=== PATIENT | female | born 1955 | race Caucasian/White ===

== ENCOUNTER → 2017-08-01 | Outpatient (CLI) | payer OTHER ==
[~2017-08-01] MED LIST: ABILIFY; ACCUNEB SO1.25 MG/1 INH; ADVAIR 250-501 EACH; ADVAIR 250-501 EACH INH; ALEVE220 M1; ALEVE220 M1 PO; ALPRAZOLAM 0.50.5 MG PO; AMBIEN CR 6.26.25 MG PO; BUDEPRION XL300 MG PO; BUPROPION XL150 MG PO; BUTRANS1 EAC1 TD; CELEXA PO; CYMBALTA20 MG PO; CYMBALTA60 MG PO; DEXILANT60 MG PO; DURAGESIC1 EAC2 TOP; ESTROPIPATE; FENTANYL PA12 MCG/H1 TP; FENTANYL PA12 MCG/HR TOP; FENTANYL PA50 MCG/HR TP; FENTANYL1 EAC1 TOP; GLYCOPYRROLATE 22 M1; GLYCOPYRROLATE PO; HYDROCODON-ACE1 EAC5 PO; HYDROCODON-ACE1 EAC8 PO; HYDROCODON-ACE1 EACH PO; IBUPROFEN 800800 M1 PO; IBUPROFEN 800800 MG PO; LEVOTHROID100 MC1 PO; LEVOXYL75 MCG PO; LIORESAL 10 MG10 MG PO; MELOXICAM7.5 MG PO; NABUMETONE 500500 M1 PO; NEURONTIN 300300 M1 PO; NORCO 10-325 T1 EACH PO; NUCYNTA75 MG PO; PERCOCET 10-321 EACH PO; PERCOCET 5-3251 EACH PO; PHENERGAN 25 MG25 M1 PO; POTASSIUM99 M1 PO; PROTONIX40 M2 PO; REMERON15 MG PO; REXULTI1 MG PO; ROBAXIN 750 MG750 M1 PO; ROBINUL1 MG PO; SEROQUEL 25 MG25 M1 PO; SERTRALINE HCL50 MG PO; VITAMINC500 PO; VOLTAREN GEL 1100 G1 PO; VOLTAREN GEL 1100 GM TOP; WELLBUTRIN PO; vybrid PO
--- NOTE | 2017-08-03 09:00 | PAINCON ---
[address] [address] PAIN MANAGEMENT CONSULTATION Name: ALAN UNDERWOOD Room: [facility]#: [id number] Admission: 08/01/17 Attend Phys: Yifan Lo DO Discharge: Date of : 57 Report #: [id number] THIS REPORT FOR: //name// CC: Yifan Noble DO DATE OF SERVICE: 08/01/2017 REFERRING PHYSICIAN: Justine Noble DO CHIEF COMPLAINT: Neck pain, upper back and chronic headache pain. HISTORY OF PRESENT ILLNESS: As you know, the patient is a 61-year-old female who returns today in followup visit with continued neck pain and chronic tension headaches. The patient indicates a pain level of 6/10 today. She states pain is exacerbated with cold temperature, sitting, walking, standing, lifting, bending, and certain activities, improves with medications and rest. The patient returns for refill of medications. She has received a prior authorization request for her Butrans patch. She indicates good efficacy with the Butrans patch, in fact she notes waning activity towards the end of the week with the Butrans patch with recurrence of pain that is intensified up to a level 10/10. Once the patch is changed and she receives the normal dosing, her pain reduces back down to its normal level. She returns to discuss options for treatment and her concerns of the prior auth for Butrans patch. ALLERGIES: SULFA. CURRENT MEDICATIONS: Alprazolam 0.5 mg every 8 hours, baclofen 10 mg t.i.d., Rexulti 1 mg per day, Butrans 15 mcg patch q. week, Advair Diskus 250/50, two puffs b.i.d., Robinul 1 mg twice a day, levothyroxine 100 mcg per day, methocarbamol 750 mg p.r.n., mirtazapine 15 mg p.o. at bedtime, Percocet 10/325 one tab every 6 hours p.r.n. for pain, Protonix 40 mg per day, Seroquel 25 mg once a day, and Viibryd 40 mg per day. SOCIAL HISTORY: The patient continues to smoke somewhere around a pack of tobacco per day and has done so for years. Denies IV or illicit drug use. Denies any chronic alcohol use. She is unaccompanied today. IMAGING: No new imaging available. PHYSICAL EXAMINATION: VITAL SIGNS: Blood pressure 151/77, pulse 73, respiratory rate 16 and unlabored, the patient is 96% on room air, current temperature 98.3 degrees Fahrenheit, height 5 feet 2-1/2 inches tall, weight 144 pounds, and BMI calculated 26. [place] [address] PAIN MANAGEMENT CONSULTATION Name: ALAN UNDERWOOD Briana Room: [facility]#: [id number] Admission: 08/01/17 Attend Phys: Yifan Lo DO Discharge: Date of : 57 Report #: [id number] GENERAL: Well-developed, well-nourished, well-hydrated 61-year-old female, appears her stated age, smells strongly of tobacco smoke, placing current pain score 6/10. HEENT: Normocephalic, atraumatic. Pupils are equal, round, and reactive to light. Extraocular muscles are intact. EXTREMITIES: Show no clubbing, no cyanosis, and no edema. MUSCULOSKELETAL: There is palpatory tenderness over the paraspinal musculature of the cervical spine, no spinous process tenderness. Cervical provocation testing includes extension, rotation, lateral flexion all intensify axial neck and upper back pain. Gyvnlnbg-vd-xqsrxt restriction of motion with lateral flexion and rotation. Upper extremity strength appears equal and symmetrical. Spurlings test is equivocal. ASSESSMENT: 1. Cervical spondylosis without radicular symptoms. 2. Chronic neck pain. 3. Tension headache. 4. Cervicalgia. 5. Chronic intractable pain. PLAN: 1. The patient returns today in followup visit where we have discussed at length opioid medication management and the new opioid restrictions proposed by CDC. The patient does note good efficacy with Butrans patch, we recommend the patient continue on the Butrans in favor of a long-term, long-acting medication formulation, this reduces the potential for tolerance and certainly does reduce the potential of addiction potentials. The patient does note good efficacy with the Butrans patch. In fact, she notes when the Butrans patch begins to wane in activity as the end week she states her pain intensifies fairly consistently, which would indicate that she is getting excellent benefit with the Butrans patch to the point where she has to use a very little of her breakthrough pain medication, but at the end of the week, she tends to have to increase the reliance on oxycodone significantly. Recommend she continue on this Butrans patch. It does appear the patient has received a letter from her third republican payer indicating the Butrans will require prior authorization, this should not be a problem as the patient is noticing good efficacy with the medication, she is noticing no side effects to its use and is getting good benefit. She has been on this medication for a very long period of time and it has been used appropriately and provides good analgesic benefit. The patient was given prescriptions of the Butrans in prescription form today. 2. The patient was provided a prescription of Butrans 15 mcg patch 1 patch per week, #4, release date of today, 4 weeks from today, 8 weeks from today, 3 months' worth of medication. The patient needs to turn this in about 2 weeks early, so that the authorization process can be completed before she runs low of the medication. 3. The patient was provided a prescription of Percocet one tab p.o. q.6 [place] [address] PAIN MANAGEMENT CONSULTATION Name: ALAN UNDERWOOD [facility] [id number] Admission: 08/01/17 Attend Phys: Yifan Lo DO Discharge: Date of : 57 Report #: [id number] hours p.r.n. for pain, #120, release dates of today, 4 weeks from today, 8 weeks from today. Strongly recommend the patient begin weaning off of this immediate release opioid. This medication has lessening affect due to the ongoing use of buprenorphine and we recommend that she try to reduce the use of this medication when possible. Further reductions in this therapy would be recommended at our next visit, reducing to 3 a day, ultimately coming off the medication in a timely fashion if at all possible. 4. The patient and I did discuss the possibility of having her see neurology in regards to Botox injections for her tension headaches. This is an effective treatment option for her chronic tension headaches, which is her main complaint today. I have offered to send the patient to neurology for the evaluation and treatment. She wishes to consider her options before moving forward. I highly recommend this to the patient. If the patient wishes, she can contact our clinic and we will provide the referrals as quickly as possible, I believe that this therapy will improve the patient's headache pain. 5. We will see the patient back in followup visit in 3 months. I have discussed with the patient our desire to have her to be smoke free, smoking has had direct correlations to chronic pain and the propagation of chronic pain signaling. This is done through the descending pain pathway. I have recommended to the patient on smoking cessation as part of our treatment goals. We have offered to the patient medical management as well as cognitive behavioral therapy treatments for this in the past and have reoffered again today. The patient is going to consider this as an option. 6. We will see the patient back in followup visit in 3 months for medication management. <ELECTRONICALLY SIGNED> By: Yifan Lo DO 08/03/17 0900 0843 1050Jacarol Lo DO /jorge
== END ==
LOC: M.PC 00:55
DX: M47.892 Other spondylosis, cervical region (principal); G89.29 Other chronic pain; G44.209 Tension-type headache, unspecified, not intractable; Z87.891 Personal history of nicotine dependence

== ENCOUNTER → 2017-10-25 | Outpatient (CLI) | payer OTHER ==
--- NOTE | 2017-11-02 08:18 | PAINCON ---
[address] [address] PAIN MANAGEMENT CONSULTATION Name: ALAN UNDERWOOD [facility] [id number] Admission: 10/25/17 Attend Phys: Manuelito Eli MD Discharge: Date of : 57 Report #: [id number] THIS REPORT FOR: //name// CC: JUSTINE Colon DATE OF SERVICE: 10/25/2017 PRIMARY CARE PHYSICIAN: Justine Noble DO. FOLLOWUP COMPLAINT: Here for medication renewal. FOLLOWUP HISTORY: The patient is a 62-year-old female who has been followed in the Pain Clinic because of chronic pain associated with her upper back as well as headache pain. States that she has had pain and discomfort for a number of years, probably greater than 20 years. She does have a handicapped child. Because of the patient's infirmity, she had to lift and maneuver her over the years. This has caused some degenerative joint disease as well as pain and discomfort in her upper extremity. She has some limited mobility of her neck. Finds that baclofen, meloxicam and oxycodone medications are helpful. She also uses a Butrans patch. Finds that continues to be efficacious. She denies any falls. Denies any problems with mentation. Denies any feelings of withdrawal with use of her medication. Rates her pain as a 7/10 at this juncture. States that she is trying to decrease her use of tobacco. ALLERGIES: SULFA, ROCEPHIN, AND ADHESIVE TAPES. CURRENT MEDICATIONS: Alprazolam 0.5 mg q.8h. p.r.n. anxiety, baclofen 10 mg t.i.d. p.r.n., Rexulti one tablet daily, Butrans patch 15 mcg transdermal change weekly, Advair Diskus 250/50 two puffs for shortness of breath, Glycopyrrolate 1 mg tablet b.i.d. for colon spasms, levothyroxine 0.1 mg, meloxicam 7.5 mg b.i.d., Robaxin 750 mg q.8 hours, Remeron 15 mg at bedtime, improved sleep and mood, oxycodone 10/325 one p.o. q. 6 hours p.r.n. pain, Protonix 40 mg b.i.d. The patient tried Seroquel 25 mg for about a week and felt that this medication did not work well for her. PAST MEDICAL HISTORY: Asthma, thyroid disease, colon problems, stomach problems, and emotional problems. PAST SURGICAL HISTORY: Hysterectomy in 2000, bladder surgery in 2003. 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 She is not working secondary to chronic depression. REVIEW OF SYSTEMS: Chronic headache pain, depression, upper back pain, [place] [address] PAIN MANAGEMENT CONSULTATION Name: ALAN UNDERWOOD Briana Room: [facility]#: [id number] Admission: 10/25/17 Attend Phys: Manuelito Eli MD Discharge: Date of : 56 Report #: [id number] pain, osteoporosis, thyroid disease. PAIN CLINIC ASSESSMENT: History of osteoarthritis in the neck area. Height 5 feet 3 inches, weight 150 pounds, BMI is 27. VITAL SIGNS: Blood pressure was 139/73, heart rate 91, respiratory rate 16, room air saturation 94%, temperature 98.5. Pain intensity. 01/10. Fall risk. The patient has not fallen in the last 3 months. Blood thinner. The patient is not on blood thinning medication. History of hypertension. The patient has not been treated for hypertension. Opioid therapy for greater than 6 weeks. The patient does have an opioid contract with the Pain Clinic and gets her medication from one source. Risk assessment tool. Functional assessment tool. Recreational drug use. The patient denies use of recreational drugs. Tobacco: The patient has smoked about 20 years, 1 pack of cigarettes per day at this juncture, states that she is trying to decrease and quit. Alcohol. Denies frequent use of alcohol and rates it as occasional. PHYSICAL EXAMINATION: GENERAL: The patient is a well-developed white female, appears her stated age. She is alert and oriented x 3. Affect is appropriate. Speech is fluent. HEENT: Normocephalic, atraumatic. Extraocular eye muscles intact. Sclerae nonicteric. Mucous membranes moist. Hearing is within normal limits. NECK: Without JVD or bruits. HEART: Regular rate and rhythm. ABDOMEN: Nontender. MUSCULOSKELETAL: Without significant kyphosis, lordosis, or scoliosis. EXTREMITIES: Upper extremity musculature is judged to be 5/5 for the major muscle groups with symmetry. The patient has pain and discomfort in the neck area. She is unable to turn her head, left or right more than about 15 degrees without increased pain and discomfort. Flexion and extension is limited as well. Left and right lateral bending is limited. The patient does have some soreness and palpation in the occipital areas. Lower extremities, muscle strength is judged to be 5/5 for the major muscle groups. There is symmetry. No sensory changes. IMPRESSION: 1. Cervical spondylosis without radicular symptoms. 2. Chronic back pain. 3. Chronic tension headaches. 4. Cervicalgia. 5. Chronic intractable pain. 6. Radiofrequency denervation, 2006 at C2, C3, [place] [address] PAIN MANAGEMENT CONSULTATION Name: UNDERWOODALEIDA WILHELMBERT Warren Room: [facility]#: [id number] Admission: 10/25/17 Attend Phys: Manuelito Eli MD Discharge: Date of : 57 Report #: [id number] RECOMMENDATIONS: We discussed treatment options with the patient. She feels that the current medical regimen continues to be helpful. She is still limited in her ability to engage in activities of daily living secondary to her pain. It is exacerbated by cold temperatures, walking, sitting, standing, lifting, and bending. Driving can be somewhat problematic as well because of limitation in her ability to radiate and move her neck in a significant range of motion. She feels that the medications of alprazolam, baclofen, Butrans, meloxicam and Percocet medications continue to be helpful. She has undergone radiofrequency treatment. At this juncture, we will continue with her current medications. A script for her medications have been rewritten. She will follow up in the near future. We would like to thank you for letting us participate in her care. We hope she continues to improve. <ELECTRONICALLY SIGNED> By: Manuelito Eli MD 11/02/17 0818 0954 0240N. Norman Eli MD /SARBJIT
== END ==
LOC: M.PC 02:02
DX: M47.892 Other spondylosis, cervical region (principal); G89.29 Other chronic pain; M54.9 Dorsalgia, unspecified

== ENCOUNTER → 2018-02-16 | Outpatient (CLI) | payer OTHER ==
--- NOTE | 2018-03-10 17:38 | PAINCON ---
[address] [address] PAIN MANAGEMENT CONSULTATION Name: ALAN UNDERWOOD [id number] Admission: 02/16/18 Attend Phys: Manuelito Eli MD Discharge: Date of : 56 Report #: [id number] THIS REPORT FOR: //name// CC: José Luis Maldonado DATE OF SERVICE: 02/16/2018 FOLLOWUP COMPLAINT: Here for medication renewal. FOLLOWUP HISTORY: The patient is a 62-year-old female who has been seen in the pain clinic because of chronic pain in her upper back as well as some problems with headache pain. She continues to have some pain and discomfort in her neck as well as in the upper back area. She has had no significant changes since we saw her in October 2017. She has had headaches, which she rates 3-4 per week, depending on her level of activity. Finds that the Butrans patch is helpful. Rates her pain as 7/10. As you recall, she has a handicapped child, requires significant amount of lifting and moving. She would like to continue with her medication at this juncture. She has returned for renewal of her medications. ALLERGIES: SULFA, ROCEPHIN, AND ADHESIVE TAPE. CURRENT MEDICATIONS: Alprazolam 0.5 mg q.8 hours for anxiety, baclofen 10 mg t.i.d., Rexulti one tablet daily, Butrans patch 15 mcg transdermal, change weekly, Advair Diskus 250/50 two puffs, glycopyrrolate one tablet b.i.d. for colon spasms, levothyroxine 0.1 mg, Meloxicam 7.5 mg b.i.d., Robaxin 750 mg q. 8 hours, Remeron 15 mg at bedtime, oxycodone 10/325 one p.o. q hours, Protonix 40 mg b.i.d. The patient has tried Seroquel 25 mg in the past. PAIN CLINIC ASSESSMENT: 1. Osteoarthritis involving the back and neck. 2. Height 5 feet 3 inches, weight 141 pounds, BMI is 25.1. 3. Vital signs: Blood pressure 144/74, heart rate 78, respiratory rate 16, room air saturation 92%, temperature 98.3. 4. Pain intensity 01/10. 5. Fall risk. The patient fell while moving a potted plant. 6. Blood thinner. The patient is not on a blood thinning medication. 7. Hypertension. The patient is not being treated for hypertension. 8. Opioid. The patient is receiving Butrans patch from the pain clinics as well as Percocet. 9. Risk assessment tool. 10. Functional assessment tool. 11. Recreational drug use. The patient denies use of recreational drugs. 12. Tobacco: The patient less than one pack of cigarettes per day, has smoked for [address] [place] [address] PAIN MANAGEMENT CONSULTATION Name: ALAN UNDERWOOD Room: [facility]#: [id number] Admission: 02/16/18 Attend Phys: Manuelito Eli MD Discharge: Date of : 57 Report #: [id number] 13. Alcohol. The patient rarely uses alcoholic beverages. PHYSICAL EXAMINATION: GENERAL: The patient is a well-developed, well-nourished white female. Appears her stated age. She is alert and oriented x 3. Affect is appropriate. Speech is fluent. HEENT: Normocephalic, atraumatic. Extraocular eye muscles intact. Sclerae nonicteric. Mucous membranes are moist. Hearing is within normal limits NECK: Without JVD or bruits. HEART: Regular rate and rhythm. ABDOMEN: Nontender. MUSCULOSKELETAL: Without kyphosis, lordosis, or scoliosis. Upper extremity muscle strength is judged to be 5/5 for the major muscle groups. There is symmetry. The patient has some pain and discomfort in her neck area. She also has some increased discomfort when she rotates her head more than 15 degrees. Flexion and extension are somewhat limited. Left and right lateral bending are limited. The patient has some soreness in the occipital areas. Lower extremity muscle strength is judged to be 5/5 for the major muscle groups with symmetry. No sensory changes. IMPRESSION: 1. Cervical spondylosis without radicular symptoms. 2. Chronic back pain. 3. Chronic tension headaches. 4. Cervicalgia, chronic intractable pain. 5. Radiofrequency denervation in 2006 at C2, C3, C4. RECOMMENDATIONS: We discussed the treatment options with the patient. We will continue with her current medications. A script for her medications of oxycodone, baclofen, Voltaren, Meloxicam, Robaxin, and Butrans patches have been rewritten. She will follow up in the future as needed. She will call us if she has any concerns regarding her medications. She is aware that opioid medications can be problematic. Constant use of opioid medications were discussed and the possibility of addiction was discussed. The patient states she keeps her medication in a guarded area. She is aware that the possibility of decreasing efficacy from these medications exist. This could be secondary to development of tolerance. We would like to thank you for letting us participate in her care. We hope she continues to improve. <ELECTRONICALLY SIGNED> By: Manuelito Eli MD 03/10/18 1738 1622 2332N. Norman Eli MD /nt
== END ==
LOC: M.PC 04:59
DX: M47.812 Spondylosis without myelopathy or radiculopathy, cervical region (principal); G44.221 Chronic tension-type headache, intractable; G89.4 Chronic pain syndrome; Z79.899 Other long term (current) drug therapy

== ENCOUNTER → 2020-06-18 | Day surgery (SDC) | payer MEDICAID ==
[~2020-06-18] MED LIST changes: +ABILIFY 5 MG TAB5 M1 PO; +ABILIFY 5 MG TAB5 MG PO; +ABILIFY10 MG PO; +AMITRIPTYLINE H50 M2 PO; +AMITRIPTYLINE H50 M3 PO; +BUPROPION HCL150 M1 PO; +CLONAZEPAM 0.50.5 M1 PO; +DULOXETINE HCL30 MG PO; +IPRAT-ALBUT 0.5-3 ML INH; +LEVO-T75 MCG PO; +LEVOTHYROXINE75 MCG PO; +LISINOPRIL20 MG PO; +OMEPRAZOLE 20 M20 M1 PO; +PROAIR HFA8.5 GM INH; +SYMBICORT160 MCG/4. INH
[2020-06-18 07:08] LABS: HEMATOCRIT 40.4 % (37.0-47.0); HEMOGLOBIN 13.3 gm/dL (12.0-15.0); MCH 27.7 pg (26.0-34.0); MCHC 32.9 g/dL (28.0-37.0); MCV 84.1 fL (80.0-100.0); MPV 7.6 fl. (7.2-11.1); RBC 4.81 mil/uL (4.20-5.00); RDW-CV 14.5 % (10.5-14.5); WBC 6.5 thou/uL (4.0-11.0)
[2020-06-18 07:17] LABS: CALCIUM 8.6 mg/dL (8.5-10.1); CREATININE 0.9 mg/dL (0.6-1.3); POTASSIUM 4.5 mmol/L (3.5-5.1)
--- NOTE | 2020-06-18 18:22 | EKG ---
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 Analyst: [facility] : 1955 Requested By: Eris Sosa Order Number: [id number] Reading MD: Mike Patino Measurements Intervals [place] Rate: 80 P: 87 [place]: 165 QRS: 59 QRSD: 90 T: 62 QT: 372 QTc: 430 Interpretive Statements Sinus rhythm Compared to ECG 12/29/2016 13:52:52 No significant changes Electronically Signed On 06-18-2020 18:22:10 CORE DRILLER HELPER by Mike Patino [email or web address] <ELECTRONICALLY SIGNED> By: Jane Patino MD, [facility] 06/18/20 1822 7 7 Jane Patino MD, [facility] /EPI
--- NOTE | 2020-06-19 11:07 | OP ---
[facility] [address] [place] [address] [address] OPERATIVE REPORT Name: ALAN UNDERWOOD Room: [facility]#: [id number] Admission: 06/18/20 Attend Phys: Eris Sosa Discharge: Date of : 57 Report #: [id number] THIS REPORT FOR: cc: KATHY ESTRADA DO BLYTHE, TIFFANNY, DO ~ Patterson, Jonathan D. MD DATE OF SERVICE: 06/18/2020 PREOPERATIVE DIAGNOSIS: Left femoral hernia. POSTOPERATIVE DIAGNOSIS: Left femoral hernia. OPERATION: Laparoscopic repair of left femoral hernia with mesh. SURGEON: Eris Sosa MD ANESTHESIA: General. ESTIMATED BLOOD LOSS: Minimal. SPECIMEN: None. DESCRIPTION OF PROCEDURE: After informed consent was obtained, the patient was brought to the operating room and placed supine. SCDs were placed and working, preoperative antibiotics were administered, general anesthesia was induced. The abdomen was prepped and draped in the usual sterile fashion. A 10 mm incision was made above the umbilicus. Fascia was incised and a trocar was placed. Pneumoperitoneum was established. Left lower quadrant and right lower quadrant 5 mm trocars were placed under direct vision. The patient was placed in Trendelenburg position. The peritoneum at the left ASIS was scored. It was then incised and reflected inferiorly. This allowed visualization of the pubic bone. The iliac vessels were protected at all times. She had incarcerated femoral hernia and this was all carefully reduced. The round ligament was identified. A medium Bard 3DMax mesh was inserted. It was tacked to Brent's ligament with 2 absorbable tacks. I then reapproximated the peritoneum with a running V-Loc suture. This covered the mesh widely. The area was then instilled with 20 mL of 0.5% Marcaine solution. The ports were removed under direct vision. The umbilicus fascia was repaired with a pqhwhg-cd-zgkvi 0 Vicryl. Skin was closed with 4-0 Monocryl. Incisions were dressed with Steri-Strips. COMPLICATIONS: [place] [address] OPERATIVE REPORT Name: ALAN UNDERWOOD Room: [facility]#: [id number] Admission: 06/18/20 Attend Phys: Eris Sosa Discharge: Date of : 57 Report #: [id number] DISPOSITION: The patient was taken to recovery in satisfactory condition. <ELECTRONICALLY SIGNED> By: Eris Sosa MD 06/19/20 1107 1003 1009Eris Sosa MD /nt
== END | disposition home or self-care (01) ==
LOC: M.SUR 06:53
PROVIDERS: ATTEND Surgery
DX: K41.30 Unilateral femoral hernia, with obstruction, without gangrene, not specified as recurrent (principal); J44.9 Chronic obstructive pulmonary disease, unspecified; K21.9 Gastro-esophageal reflux disease without esophagitis; F32.9 Major depressive disorder, single episode, unspecified; F41.9 Anxiety disorder, unspecified; F17.210 Nicotine dependence, cigarettes, uncomplicated; Z98.890 Other specified postprocedural states; Z79.899 Other long term (current) drug therapy; Z20.828 Contact with and (suspected) exposure to other viral communicable diseases; Z90.710 Acquired absence of both cervix and uterus; Z88.2 Allergy status to sulfonamides

== ENCOUNTER 2021-04-16 22:45 | Inpatient (IN) | payer MEDICARE, MEDICAID ==
[~2021-04-16] VITALS: Ht 157.5 cm; Wt 48.1 kg
[2021-04-16 22:56] VITALS: BP 145/101
[2021-04-16 23:13] LABS: ABSOLUTE BASOPHILS 0.1 thou/uL (0.0-0.2); ABSOLUTE EOSINOPHILS 0.3 thou/uL (0.0-0.7); ABSOLUTE LYMPHOCYTES 2.8 thou/uL (0.8-5.3); ABSOLUTE MONOCYTES 1.1 thou/uL (0.0-1.2); ABSOLUTE NEUTROPHILS 4.4 thou/uL (1.6-8.1); BASOPHILS 1.2 %; EOSINOPHILS 2.9 %; HEMATOCRIT 44.4 % (37.0-47.0); HEMOGLOBIN 14.4 gm/dL (12.0-15.0); MCH 27.8 pg (26.0-34.0); MCHC 32.5 g/dL (28.0-37.0); MCV 85.3 fL (80.0-100.0); MPV 9.2 fl. (7.2-11.1); NUCLEATED RBCS 0 /100WBC; PLATELET COUNT* 253 thou/uL (150-400); POLYS 50.9 %; RDW-CV 14.8 % (10.5-14.5); WBC 8.7 thou/uL (4.0-11.0)
[2021-04-16 23:26] LABS: CALCIUM 8.8 mg/dL (8.5-10.1); CREATININE 1.2 mg/dL (0.6-1.3); POTASSIUM 4.6 mmol/L (3.5-5.1)
[2021-04-16 23:37] LABS: ALBUMIN 3.7 g/dL (3.4-5.0); TOTAL BILIRUBIN 0.3 mg/dL (<0.1-1.0); TOTAL PROTEIN 6.5 g/dL (6.4-8.2)
[2021-04-17] VITALS (20 sets, daily range): BP systolic 89–179; BP diastolic 54–93
[2021-04-17 00:36] LABS: APTT 24.2 Seconds (25.0-31.3); INR 1.1; PROTIME 11.2 Seconds (9.20-11.50)
[2021-04-17 02:49] LABS: PCO2 40.2 mmHg (35.0-45.0); pH 7.376 (7.340-7.450)
[2021-04-17 02:50] LABS: PO2 128.4 mmHg (75.0-100.0)
--- NOTE | 2021-04-17 09:57 | EKG ---
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: [place] : 1955 Requested By: Sarah Campos Order Number: [id number] MD: Jarocho Hamilton Measurements Intervals [place] Rate: 113 P: 88 [place]: 162 QRS: -52 QRSD: 110 T: 92 QT: 351 QTc: 482 Interpretive Statements Sinus tachycardia left axis Probable anteroseptal infarct Compared to ECG 06/18/2020 07:28:08 Myocardial infarct finding now present Sinus rhythm no longer present Electronically Signed On 04-17-2021 9:56:51 CDT by Jarocho Hamilton [email or web address] <ELECTRONICALLY SIGNED> By: Jarocho Hamilton MD, FACC 04/17/21 0956 50 50 Jarocho Hamilton MD, FACC /EPI
[2021-04-17] MEDS ORDERED: PEPCID20 MG PO (12:32)
[2021-04-17] MEDS ORDERED: XANAX 0.25 MG0.25 MG PO (12:32)
[2021-04-17] MEDS ORDERED: PRAVASTATIN SOD20 MG PO (12:34)
--- NOTE | 2021-04-17 17:02 | EKG ---
[place] [address] ELECTROCARDIOGRAM REPORT Name: ALAN UNDERWOOD Room: [address] ADM IN [facility].#: [id number] Admission: 04/17/21 Attend Phys: Jacki Love Discharge: Date of : 57 Date of Service: 04/17/21 0157 Report #: [id number] THIS REPORT FOR: //name// [facility] ED Test Date: 2021-04-17 Test Time: 01:57:50 Pat Name: ALAN UNDERWOOD Department: Room: [facility] Gender: F Fire Observer: [place] : 1955 Requested By: Sarah Campos Order Number: [id number] MD: Jarocho Hamilton Measurements Intervals [place] Rate: 88 P: 80 [place]: 149 QRS: 69 QRSD: 86 T: 66 QT: 382 QTc: 463 Interpretive Statements Sinus rhythm septal infarct, old Compared to ECG 04/16/2021 22:52:33 Sinus tachycardia no longer present Myocardial infarct finding still present Electronically Signed On 04-17-2021 17:01:49 CDT by Jarocho Hamilton [email or web address] <ELECTRONICALLY SIGNED> By: Jarocho Hamilton MD, FACC 04/17/21 1701 6 015 Jarocho Hamilton MD, FAC /EPI
--- NOTE | 2021-04-17 18:43 | CARD ---
[address] [address] CARDIAC CATH REPORT Name: ALAN UNDERWOOD Briana Room: [address] IN [facility]#: [id number] Admission: 04/17/21 Attend Phys: Fozia Mckeon Discharge: Date of : 57 Report #: [id number] THIS REPORT FOR: cc: FAM - Family physician unknown FAM - Family physician unknown Jarocho Hamilton MD [facility] ~ APPROVED REPORT Study performed: 04/17/2021 14:10:09 Patient Details Patient Status: IN Room #: 118 The patient is a 65 year-old female Event Personnel Fredy Reyes RTR Monitor, Jenna Crystal RTR Scrub, Jarocho Hamilton Home Coordinator, Lillian Redding RN grinder set up operator internal Performed Left Heart Cath w/or w/o Coronaries [id number] [facility] w/wo Plasty Single LAD [id number] Hemostasis with Hemoband Indication Abnormal ECG, Non-STEMI , Chest pain Risk Factors Hypercholesterolemia, Hypertension, Tobacco History () Admission/Lab Medications/Medications given during procedure Glycoprotein IllbIlla Inhibitors, Heparin Unfract., Midazolam (Versed) IV 2 mg, Lidocaine Subcut 5 ml, Nitroglycerin IA 200 mcg, Verapamil IA 2.5 mg, Heparin IV 3000 units, Aggrastat Unknown 5.9 ml, Midazolam (Versed) IV 1 mg, Plavix PO 300 mg Procedure Narrative The patient was brought electively to the Cardiac Catheterization Laboratory and was prepped and draped in a sterile manner. The right wrist was infiltrated with 2% Lidocaine subcutaneous anesthesia. IV conscious sedation was used throughout procedure with appropriate monitoring and was performed in the presence of a registered nurse who was an independent trained observer other than the physician performing the procedure. A Slender Glidesheath sheath was inserted into the right radial artery. [place] [address] CARDIAC CATH REPORT Name: ALAN UNDERWOOD Room: [address]#: [id number] Admission: 04/17/21 Attend Phys: Fozia Mckeon Discharge: Date of : 57 Report #: [id number] using coronary diagnostic catheters. The right coronary system was accessed and visualized with a Diagnostic JR4 6Fr catheter. The left coronary system was accessed and visualized with a Diagnostic JL4 6Fr catheter. The left ventricle was accessed and visualized with a Diagnostic Pigtail 6Fr catheter. Left ventricular/Aortic Valve gradient assessed via catheter pullback. Left ventriculogram was performed in MCKEON projection. Closure device was deployed with a 6 Fr vascband. The patient tolerated the procedure well and there were no complications associated with the procedure. There was no hematoma. Intraoperative Conscious Sedation Sedation start time: 1554 Case end Time: 1632 Versed --3 mg Fluoro Time: 6.0 minutes Dose: DAP 45894 cGycm2 690.28 mGy Contrast Type and Amount: Visipaque 105 mL Coronary Angiography The patient's coronary anatomy is right dominant. Diagnostic Cath Left Main 0% stenosis LAD 70% proximal stenosis. 60% stenosis just distal to takeoff of the second diagonal branch. Diagonal 2 medium sized vessel with 70% ostial stenosis Circumflex 0% stenosis Right Coronary 0% stenosis Left Ventriculography The left ventricular ejection fraction is estimated to be 25-30%. Left ventricular wall motion abnormalities are present. There is no mitral insufficiency. Akinesis noted of the mid inferior and mid anterior wall. Hemodynamics The aortic pressure is 113/74 mmHg with a mean of 70 mmHg. The left ventricular pressure is 95/12 mmHg with a mean of mmHg. The left ventricular end diastolic pressure is 20 mmHg. There was no gradient across the aortic valve upon pullback. Pullback from the left ventricle to the aorta revealed no gradient [place] [address] CARDIAC CATH REPORT Name: UNDERWOODALAN Briana Room: [address]#: [id number] Admission: 04/17/21 Attend Phys: Fozia Mckeon Discharge: Date of : 57 Report #: [id number] PCI Technique Lesion Anticoagulation was achieved with Heparin. bolus of IV aggrastat given Percutaneous coronary intervention was performed on the proximal left anterior descending artery segment. The lesion stenosis prior to intervention was 70% with BRINA 3 flow. A 6FR XB LAD 3.0 100CM Guide Catheter was used to engage the Left ostium. A IG: BMW 190cm Interventional Guidewire was used to cross the lesion. STENT DEPLOYMENT A drug-eluting stent [place] RX Stent [id number] was inserted and inflated up to 10.00atm for 16seconds. Repeat angiography revealed the following post-stent deployment results: 0% stenosis. Additional Inflation: 12.00atm for 16seconds. Additional Inflation: 13.00atm for 19seconds. Final angiography reveals 0 % stenosis with BRINA 3 flow. Conclusion 1. 70% stenosis of the proximal LAD 2. LVEF 25-30% consistent with stress induced cardiomyopathy. 3. successful placement of a drug eluting stent in the proximal LAD Recommendations Smoking Cessation Medications Administered Clopidogrel <ELECTRONICALLY SIGNED> By: Jarocho Hamilton MD, FACC 04/17/211841 41 [id number] Hamilton MD, FACC /INF
[2021-04-18 00:45] VITALS: BP 105/57
[2021-04-18 01:04] LABS: HEMATOCRIT 38.3 % (37.0-47.0); MCH 27.4 pg (26.0-34.0); MCHC 32.4 g/dL (28.0-37.0); MCV 84.4 fL (80.0-100.0); MPV 8.7 fl. (7.2-11.1); RBC 4.54 mil/uL (4.20-5.00); RDW-CV 14.6 % (10.5-14.5); WBC 8.9 thou/uL (4.0-11.0)
[2021-04-18 01:19] LABS: ANION GAP 7 mmol/L (7-16); BUN 19 mg/dL (7-18); CALCIUM 7.3 mg/dL (8.5-10.1); CHLORIDE 110 mmol/L (98-107); CHOLESTEROL 133 mg/dL (<200); CO2 25 mmol/L (21-32); CREATININE 0.9 mg/dL (0.6-1.3); GLUCOSE 92 mg/dL (70-99); HDL CHOLESTEROL 50 mg/dL (>40); LDL CHOLESTEROL 62 mg/dL (<100); POTASSIUM 3.9 mmol/L (3.5-5.1); SODIUM 142 mmol/L (136-145); TC:HDL 2.7 Ratio (Not establshd); TRIGLYCERIDE 109 mg/dL (<150); VLDL 22 mg/dL (<40)
[2021-04-18 01:25] LABS: SERUM ASSESSMENT CLEAR
[2021-04-18 01:30] LABS: HEMOGLOBIN 12.4 gm/dL (12.0-15.0)
[2021-04-18 04:27] VITALS: BP 96/50
[2021-04-18 08:00] VITALS: BP 111/54
--- NOTE | 2021-04-18 10:03 | CON ---
[facility] [address] [place] [address] CONSULTATION Name: UNDERWOODALAN Briana Room: [address] IN .R.#: [id number] Admission: 04/17/21 Attend Phys: Fozia Mckeon Discharge: Date of : 57 Report #: [id number] THIS REPORT FOR: cc: FAM - Family physician unknown FAM - Family physician unknown Jarocho Hamilton MD [facility] ~ DATE OF CONSULTATION: 04/17/2021 CARDIOLOGY CONSULTATION HISTORY OF PRESENT ILLNESS: The patient is a 65-year-old single white female who I was asked to see in the Emergency Room today after she complained of chest pain. The patient states that 6 years ago, she was walking through an airport in [place], [place] when she had a syncopal spell. She was admitted to the hospital and told that she had a heart attack secondary to stress. She apparently did not have a heart catheterization. She notes that recently she has had a cough and been short of breath. She denies any fever or swelling of her feet. She also noticed some tightness in the chest. It has been there for 2 days. It is a constant sensation. She denied radiating to her arms. She finally came to the hospital yesterday by ambulance and was put on BiPAP. I was asked to see her when her troponin was noted to be elevated. She denied any palpitations, recent syncope. PAST MEDICAL HISTORY: She had a hernia repair, hysterectomy. She has a history of hypertension. She has a history of depression. She has a history of COPD, uses inhaler and nebulized treatment. MEDICATIONS: At home include albuterol inhaler, Elavil, Abilify, Symbicort, Wellbutrin, clonazepam, lisinopril, omeprazole. ALLERGIES: SHE HAS A PREVIOUS ALLERGY TO SULFA DRUGS. FAMILY HISTORY: Negative for heart disease. SOCIAL HISTORY: She is , lives with her daughter in [place]. She does not work at this time, smokes half pack of cigarettes a day, rarely drinks alcohol. No illicit drug use. REVIEW OF SYSTEMS: No history of a stroke. She has COPD. No history of liver disease, kidney disease, cancer. She has a history of depression. She sees a psychiatrist. No chronic skin condition. PHYSICAL EXAMINATION: GENERAL: Revealed a middle-aged female, lying in bed. [place] [id number] CONSULTATION Name: ALAN UNDERWOOD Briana Room: [address]#: [id number] Admission: 04/17/21 Attend Phys: Fozia Mckeon Discharge: Date of : 57 Report #: [id number] VITAL SIGNS: She had a blood pressure of 140/90, pulse is 90. She is afebrile. HEENT: She was anicteric. Conjunctivae pink. Mucous membranes are moist. NECK: Veins does not appear distended. No carotid bruits. Neck is supple. CHEST: There are expiratory wheezes. HEART: Regular rate and rhythm. No murmur. ABDOMEN: Soft. EXTREMITIES: Had no edema. SKIN: Cool and dry. NEUROLOGIC: Nonfocal. LYMPHATIC: No adenopathy. MUSCULOSKELETAL: No joint effusion. LABORATORY DATA: Her ECG on admission showed sinus tachycardia, ventricular premature complexes, poor R-wave progression. Her workup in the Emergency Room last night, she had a portable chest x-ray that showed normal heart size, clear lung ernandez. Her lab work, her sodium 137, creatinine 1.2, glucose is 267. Her high sensitivity troponin was 255 on admission, last night went up to 1304. She had an LDL of 157 in 2013. Her urine drug screen had benzodiazepines and opiates in the past. Hemoglobin is 14.4. Her COVID antigen stat test apparently was not done, although she has been vaccinated and she did have a stat test last night that was negative. IMPRESSION AND RECOMMENDATIONS: 1. Non-ST elevation myocardial infarction. Recommend cardiac catheterization. 2. Chronic obstructive pulmonary disease. 3. Chronic back pain. The patient goes to the Pain Clinic. 4. Tobacco abuse. 5. Chronic obstructive pulmonary disease. 6. Elevated blood sugar. Recommend ruling out diabetes. 7. Hypertension. The patient is on MISAEL inhibitor. 8. History of depression. <ELECTRONICALLY SIGNED> By: Jarocho Hamilton MD, FACC 04/18/21 1003 0803 [id number] Hamilton MD, FACC /nt
--- NOTE | 2021-04-18 10:16 | EKG ---
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: : 1955 Requested By: Jarocho Hamilton Order Number: [id number] Reading MD: Jarocho Hamilton Measurements Intervals [place] Rate: 67 P: 80 NC: 169 QRS: 67 QRSD: 79 T: 260 QT: 439 QTc: 464 Interpretive Statements Sinus rhythm septal infarct, old Nonspecific T abnormalities, inferior leads Compared to ECG 04/17/2021 01:57:50 T-wave abnormality now present Myocardial infarct finding still present Electronically Signed On 04-18-2021 10:16:38 CDT by Jarocho Hamilton [email or web address] <ELECTRONICALLY SIGNED> By: Jarocho Hamilton MD, FACC 04/18/21 1016 56 57 Jarocho Hamilton MD, FACC /EPI
[2021-04-18 15:40] VITALS: BP 90/57
[2021-04-18 20:00] VITALS: BP 101/53
[2021-04-19] VITALS: BP 81/44
[2021-04-19 04:00] VITALS: BP 93/55
[2021-04-19 06:36] LABS: CREATININE 0.9 mg/dL (0.6-1.3)
[2021-04-19 06:41] LABS: CALCIUM 9.4 mg/dL (8.5-10.1)
[2021-04-19 06:43] LABS: POTASSIUM 6.5 mmol/L (3.5-5.1)
[2021-04-19 08:00] VITALS: BP 104/58
[2021-04-19 16:00] VITALS: BP 110/65
[2021-04-19 20:00] VITALS: BP 95/37
[2021-04-20] VITALS: BP 123/67
[2021-04-20 04:00] VITALS: BP 128/73
[2021-04-20 04:13] LABS: BE 2.9 mmol/L (-2 to +3); PCO2 VENOUS 48.4 mmHg (41.0-51.0); PO2 VENOUS 37.7 mmHg (35.0-45.0)
[2021-04-20 04:15] LABS: HEMATOCRIT 44.8 % (37.0-47.0); MCH 27.5 pg (26.0-34.0); MCV 83.2 fL (80.0-100.0); RBC 5.39 mil/uL (4.20-5.00); RDW-CV 14.3 % (10.5-14.5); WBC 10.3 thou/uL (4.0-11.0)
[2021-04-20 04:26] LABS: HEMOGLOBIN 14.8 gm/dL (12.0-15.0)
[2021-04-20 04:35] LABS: ALBUMIN 3.3 g/dL (3.4-5.0); CALCIUM 9.3 mg/dL (8.5-10.1); CREATININE 1.2 mg/dL (0.6-1.3); MAGNESIUM 2.4 mg/dL (1.8-2.4); POTASSIUM 4.5 mmol/L (3.5-5.1); TOTAL BILIRUBIN 0.4 mg/dL (<0.1-1.0); TOTAL PROTEIN 6.5 g/dL (6.4-8.2)
[2021-04-20 08:00] VITALS: BP 116/62
[2021-04-20 14:13] VITALS: BP 110/68
--- NOTE | 2021-04-20 16:15 | EKG ---
[place] [address] ELECTROCARDIOGRAM REPORT Name: ALAN UNDERWOOD Room: [address] ADM IN M.R.#: [id number] Admission: 04/17/21 Attend Phys: Jacki Love Discharge: Date of : 57 Date of Service: 04/20/21 1113 Report #: [id number] THIS REPORT FOR: //name// [facility] Test Date: 2021-04-20 Test Time: 11:13:06 Pat Name: ALAN UNDERWOOD Department: Room: [address] Gender: F Dietary Assistant: 1884 : 1955 Requested By: Jarocho Hamilton Order Number: [id number] Reading MD: Jarocho Hamilton Measurements Intervals [place] Rate: 84 P: 88 DC: 151 QRS: 48 QRSD: 78 T: 255 QT: 396 QTc: 469 Interpretive Statements Sinus rhythm Repol abnrm suggests ischemia, anterolateral Compared to ECG 04/17/2021 18:57:57 Early repolarization now present Possible ischemia now present Electronically Signed On 04-20-2021 16:15:06 CDT by Jarocho Hamilton [email or web address] <ELECTRONICALLY SIGNED> By: Jarocho Hamilton MD, [facility] 04/20/21 1615 1113 1113 Jarocho Hamilton MD, [facility] /EPI
[2021-04-20 19:02] VITALS: BP 116/64
[2021-04-20 20:37] VITALS: BP 99/61
[2021-04-21 00:04] VITALS: BP 108/71
[2021-04-21 03:49] VITALS: BP 101/64
[2021-04-21 08:00] VITALS: BP 135/84
[2021-04-21 12:00] VITALS: BP 110/68
[2021-04-21 16:00] VITALS: BP 109/65
[2021-04-21 20:00] VITALS: BP 90/52
[2021-04-22 04:30] VITALS: BP 154/94
[2021-04-22] MEDS ORDERED: SPIRONOLACTONE25 MG PO (08:37)
[2021-04-22] MEDS ORDERED: PLAVIX 75 MG TA75 M1 PO (08:37)
[2021-04-22] MEDS ORDERED: BAYER CHEWABLE81 MG PO (08:37)
[2021-04-22] MEDS ORDERED: LIPITOR40 MG PO (08:38)
[2021-04-22 08:57] VITALS: BP 121/66
[2021-04-22 09:59] VITALS: BP 121/66
[2021-04-22 12:51] VITALS: BP 113/73
[2021-04-22 16:30] VITALS: BP 114/69
[2021-04-22 20:30] VITALS: BP 119/71
[2021-04-23 00:38] VITALS: BP 126/69
[2021-04-23 04:36] VITALS: BP 138/83
[2021-04-23] MEDS ORDERED: PREDNISONE 10 M10 MG PO (09:47)
[2021-04-23] MEDS ORDERED: DOXYCYCLINE 10100 MG PO (09:47)
[2021-04-23 12:18] VITALS: BP 113/71
[2021-04-23 13:38] VITALS: BP 113/71
[2021-04-23 14:17] VITALS: BP 113/71
[2021-04-23 16:01] VITALS: BP 132/74
== END 2021-04-23 18:19 | disposition home or self-care (01) | DRG 246 ==
LOC: M.ERS 22:45 → M.ORTHSURG 04-17 02:20 → M.TBA-ER 04-17 02:20 → M.ORTHSURG 04-17 09:39
PROVIDERS: Internal Medicine; Internal Medicine Cardiovascular Disease; Personal Emergency Response Attendant; ADMIT Internal Medicine; ATTEND Internal Medicine
PROC: 5A09357 Assistance with Respiratory Ventilation, Less than 24 Consecutive Hours, Continuous Positive Airway Pressure (ICD-10-PCS; principal; 2021-04-16)
PROC: 027034Z Dilation of Coronary Artery, One Artery with Drug-eluting Intraluminal Device, Percutaneous Approach (ICD-10-PCS; 2021-04-17)
PROC: B215YZZ Fluoroscopy of Left Heart using Other Contrast (ICD-10-PCS; 2021-04-17)
PROC: 5A09357 Assistance with Respiratory Ventilation, Less than 24 Consecutive Hours, Continuous Positive Airway Pressure (ICD-10-PCS; 2021-04-17)
PROC: B211YZZ Fluoroscopy of Multiple Coronary Arteries using Other Contrast (ICD-10-PCS; 2021-04-17)
PROC: 4A023N7 Measurement of Cardiac Sampling and Pressure, Left Heart, Percutaneous Approach (ICD-10-PCS; 2021-04-17)
PROC: 5A0935A Assistance with Respiratory Ventilation, Less than 24 Consecutive Hours, High Flow/Velocity Cannula (ICD-10-PCS; 2021-04-22)
DX: I21.4 Non-ST elevation (NSTEMI) myocardial infarction (principal); J96.01 Acute respiratory failure with hypoxia; I50.21 Acute systolic (congestive) heart failure; J44.1 Chronic obstructive pulmonary disease with (acute) exacerbation; Z68.1 Body mass index [BMI] 19.9 or less, adult; F32.9 Major depressive disorder, single episode, unspecified; F41.9 Anxiety disorder, unspecified; K21.9 Gastro-esophageal reflux disease without esophagitis; J45.909 Unspecified asthma, uncomplicated; F17.210 Nicotine dependence, cigarettes, uncomplicated; E03.9 Hypothyroidism, unspecified; E78.5 Hyperlipidemia, unspecified; I11.0 Hypertensive heart disease with heart failure; I25.5 Ischemic cardiomyopathy; Z20.822 Contact with and (suspected) exposure to COVID-19; G89.29 Other chronic pain; M54.9 Dorsalgia, unspecified; Z71.6 Tobacco abuse counseling; Z90.710 Acquired absence of both cervix and uterus; Z88.2 Allergy status to sulfonamides; Z88.8 Allergy status to other drugs, medicaments and biological substances